=== PATIENT | female | born 1975 | race Caucasian/White ===

== ENCOUNTER 2021-10-08 12:40 | Emergency (ER) | payer OTHER ==
[2021-10-08] MEDS ORDERED: NORCO 5-325 TA1 EACH PO (14:50)
== END 2021-10-08 15:25 | disposition home or self-care (01) ==
LOC: FER 12:40
DX: S93.412A Sprain of calcaneofibular ligament of left ankle, initial encounter (principal); S93.492A Sprain of other ligament of left ankle, initial encounter; Z88.1 Allergy status to other antibiotic agents; W18.41XA Slipping, tripping and stumbling without falling due to stepping on object, initial encounter; Y92.89 Other specified places as the place of occurrence of the external cause; Y99.0 Civilian activity done for income or pay
CPT/HCPCS: 73610